=== PATIENT | male | born 2000 | race African-American/Black ===

== ENCOUNTER 2024-11-04 21:50 | Emergency (ER) | payer MEDICAID ==
[~2024-11-04] VITALS: Ht 180.3 cm; Wt 73.0 kg
[2024-11-04 21:57] VITALS: O2SAT 98
[2024-11-04 22:46] VITALS: TEMP 36.6
[2024-11-04] MEDS: LIDOCAINE HCL 1% 20ML VIAL INFIL ONE (23:15)
[2024-11-04 23:57] VITALS: BP 119/83; PULSE 81; RESP 16
[2024-11-04] MEDS: KETOROLAC 15MG/ML VIAL IM ONE (23:57)
[2024-11-05] MEDS ORDERED: SULF1TAB48 MT (01:08)
[2024-11-05] MEDS ORDERED: CEPH500C2 MT (01:08)
== END 2024-11-05 01:19 | disposition home or self-care (01) ==
LOC: ER 21:50
DX: L02.31 Cutaneous abscess of buttock (principal); Z79.899 Other long term (current) drug therapy
CPT/HCPCS: 99283; 10060; 96372; J1885; J2003

== ENCOUNTER 2025-01-18 08:45 | Emergency (ER) | payer MEDICAID ==
[~2025-01-18] VITALS: Ht 180.3 cm; Wt 70.3 kg
[~2025-01-18 08:45] MED LIST: CEPH500C2 MT; SULF1TAB48 MT
[2025-01-18 08:48] VITALS: O2SAT 100
[2025-01-18 08:55] VITALS: BP 129/70; PULSE 85; RESP 15; TEMP 36.9; O2SAT 100
[2025-01-18] MEDS: LIDOCAINE HCL 1% 20ML VIAL INFIL ONE (09:24)
== END 2025-01-18 11:14 | disposition left against medical advice (07) ==
LOC: ER 08:45
DX: L02.31 Cutaneous abscess of buttock (principal)
CPT/HCPCS: 99281; Z7610

== ENCOUNTER 2025-01-31 07:22 | Emergency (ER) | payer MEDICAID ==
[~2025-01-31] VITALS: Ht 172.7 cm; Wt 66.0 kg
[2025-01-31 07:29] VITALS: O2SAT 98
[2025-01-31] MEDS: LIDOCAINE HCL/EPINEPHRINE 1%-EPI 1:100,000 20ML VIAL MC ONE (07:45)
[2025-01-31] MEDS: ACETAMINOPHEN 500MG TABLET PO ONE (08:33)
[2025-01-31 08:40] VITALS: BP 126/62; PULSE 71; RESP 18; TEMP 36.7; O2SAT 98
== END 2025-01-31 08:43 | disposition home or self-care (01) ==
LOC: ER 07:47
DX: L02.01 Cutaneous abscess of face (principal)
CPT/HCPCS: 10060; 99284; J2004; Z7610 ×2